=== PATIENT | female | born 1985 | race Caucasian/White ===

== ENCOUNTER 2021-04-09 09:16 | Emergency (ER) | payer OTHER ==
[2021-04-09] MEDS ORDERED: PREDNISONE 20MG20 MG PO (09:54)
== END 2021-04-09 10:09 | disposition home or self-care (01) ==
LOC: FER 09:16
DX: L23.7 Allergic contact dermatitis due to plants, except food (principal); F17.210 Nicotine dependence, cigarettes, uncomplicated
CPT/HCPCS: 99282; J7512